=== PATIENT | female | born 1990 | race Caucasian/White ===

== ENCOUNTER 2021-03-09 15:37 | Inpatient (IN) | payer OTHER ==
[2021-03-09] MEDS ORDERED: BUTORPHANOL TARTRATE 1 MG/ML VIAL IVPUSH PRN (17:12)
[2021-03-09] MEDS ORDERED: PROMETHAZINE HCL 25 MG/1 ML VIAL IVPUSH ONE (17:12)
[2021-03-09] MEDS ORDERED: DEXTROSE 5%-LACTATED RINGERS 1,000 ML IV SCH (17:15)
[2021-03-09 17:16] LABS: BASO % 0.3 % (0-2.0); EOS % 0.3 % (0-4.5); HEMATOCRIT 37.3 % (32.4-45.2); HEMOGLOBIN 12.9 GM/dL (10.7-15.3); LYMPH % 23.4 % (8-40); MCH 33.2 pg (25.7-33.7); MCHC 34.7 g/dl (32.0-36.0); MEAN CELL VOLUME 95.7 fl (80-96); MEAN PLT VOLUME 7.9 fl (7.5-11.1); MONO % 7.2 % (3.8-10.2); NEUT % 68.8 % (42.8-82.8); PLATELET COUNT 261 K/MM3 (134-434); RBC 3.89 M/mm3 (3.60-5.2); RDW 13.7 % (11.6-15.6); WHITE BLOOD COUNT 8.3 K/mm3 (4.0-10.0)
[2021-03-09] MEDS ORDERED: AMPICILLIN SODIUM 2 GM VIAL ONE (17:18)
[2021-03-09 17:23] LABS: INR 0.89 (0.83-1.09)
[2021-03-09] MEDS ORDERED: AMPICILLIN - 2 GM in SODIUM CHLORIDE 100 ML IVPB ONE (17:30)
[2021-03-09 17:37] LABS: BLOOD UREA NITROGEN 7.8 mg/dL (7-18); CALCIUM 9.4 mg/dL (8.5-10.1)
[2021-03-09 17:39] VITALS: BMI 33.0
[2021-03-09 17:41] LABS: CREATININE 0.4 mg/dL (0.55-1.3)
[2021-03-09] MEDS ORDERED: ELECTROLYTE-148 SOLN 1,000 ML IV SCH (18:15)
[2021-03-09] MEDS ORDERED: OXYTOCIN 30 UNITS in 0.9% NS 30 UNIT/500 ML INFUS.BAG IVPB SCH ×2 (21:00→21:15)
[2021-03-09] MEDS ORDERED: AMPICILLIN SODIUM 1 GM VIAL ONE ×2 (21:25→21:28)
[2021-03-09] MEDS: AMPICILLIN - 1 GM in SODIUM CHLORIDE 100 ML IVPB SCH (21:30)
[2021-03-09] MEDS ORDERED: OXYTOCIN 30 UNITS in 0.9% NS 30 UNIT/500 ML INFUS.BAG IVPB ONE (22:53)
[2021-03-10] MEDS ORDERED: PROMETHAZINE HCL 25 MG/1 ML VIAL ONE (01:28)
[2021-03-10] MEDS ORDERED: BUTORPHANOL TARTRATE 2 MG/ML VIAL ONE (01:28)
[2021-03-10] MEDS: AMPICILLIN - 1 GM in SODIUM CHLORIDE 100 ML IVPB SCH ×3 (02:00→09:02)
[2021-03-10] MEDS ORDERED: AMPICILLIN SODIUM 1 GM VIAL ONE ×3 (02:03→08:50)
[2021-03-10] MEDS ORDERED: FENTANYL/BUPIVACAINE/NS/PF - PCEA - 50 ML DISP.SYRIN EP ONE (07:16)
[2021-03-10] MEDS ORDERED: PCA PUMP NR ONE (07:16)
[2021-03-10] MEDS ORDERED: NALOXONE HCL 0.4 MG/ML VIAL IVPUSH PRN (08:05)
[2021-03-10] MEDS ORDERED: FENTANYL/BUPIVACAINE/NS/PF - PCEA - 50 ML DISP.SYRIN EP SCH (08:15)
[2021-03-10] MEDS ORDERED: ELECTROLYTE-148 SOLN 1,000 ML IV SCH (08:30)
[2021-03-10] MEDS ORDERED: LIDOCAINE HCL 1% PRESERVATIVE FREE - 30ML VIAL ONE (09:29)
[2021-03-10] MEDS ORDERED: OXYTOCIN 20 UNITS in 0.9% NS 20 UNIT/1,000 ML INFUS.BAG IV ONE (09:29)
[2021-03-10] MEDS: OXYTOCIN 20 UNITS in 0.9% NS 20 UNIT/1,000 ML INFUS.BAG IV SCH ×2 (10:20→18:18)
[2021-03-10 10:53] LABS: CORD HCO3 25.3 mmHg (20-29); CORD PCO2 64.3 mmHg (30-78); CORD pH 7.213 (7.14-7.44)
[2021-03-10 10:55] LABS: CORD BASE EXCESS -4.9 mmol/L (0-2); CORD HCO3 21.8 mmHg (20-29); CORD PCO2 46.2 mmHg (30-78); CORD pH 7.291 (7.14-7.44)
[2021-03-10] MEDS ORDERED: METHYLERGONOVINE MALEATE 0.2 MG/1 ML AMP IM PRN (12:00)
[2021-03-10] MEDS ORDERED: BENZOCAINE 20% 57 GM BOTTLE TP PRN (12:00)
[2021-03-10] MEDS ORDERED: BISACODYL 10 MG SUPP.RECT RC PRN (12:00)
[2021-03-10] MEDS ORDERED: BENZOCAINE 28 GM HEMORRHOIDAL OINTMENT TP PRN (12:00)
[2021-03-10] MEDS ORDERED: WITCH HAZEL 50% (TUCKS) 40 PAD/JAR PAD TP PRN (12:00)
[2021-03-10] MEDS: IBUPROFEN 600 MG TABLET (FP) PO PRN ×2 (16:02→20:44)
[2021-03-10] MEDS: ACETAMINOPHEN 325 MG TABLET (FP) PO PRN ×2 (16:03→20:43)
[2021-03-10] MEDS: SENNOSIDES/DOCUSATE COMBO (SENNA PLUS) TABLET (UD) PO PRN (20:43)
[2021-03-10] MEDS: FERROUS SO4 325 MG TABLET (FP) PO SCH (22:06)
[2021-03-11] MEDS: ACETAMINOPHEN 325 MG TABLET (FP) PO PRN ×3 (00:24→19:53)
[2021-03-11] MEDS: IBUPROFEN 600 MG TABLET (FP) PO PRN ×3 (00:25→19:54)
[2021-03-11 08:22] LABS: BASO % 0.9 % (0-2.0); EOS % 0.5 % (0-4.5); HEMATOCRIT 32.4 % (32.4-45.2); HEMOGLOBIN 11.4 GM/dL (10.7-15.3); LYMPH % 24.3 % (8-40); MCH 33.7 pg (25.7-33.7); MCHC 35.2 g/dl (32.0-36.0); MEAN CELL VOLUME 95.6 fl (80-96); MEAN PLT VOLUME 7.1 fl (7.5-11.1); MONO % 7.4 % (3.8-10.2); NEUT % 66.9 % (42.8-82.8); PLATELET COUNT 230 K/MM3 (134-434); RBC 3.39 M/mm3 (3.60-5.2); WHITE BLOOD COUNT 7.9 K/mm3 (4.0-10.0)
[2021-03-11] MEDS: FERROUS SO4 325 MG TABLET (FP) PO SCH ×2 (09:05→21:37)
[2021-03-11] MEDS: PRENATAL VITAMINS W/ FOLIC ACID TABLET (FP) PO SCH (09:06)
[2021-03-11] MEDS: SENNOSIDES/DOCUSATE COMBO (SENNA PLUS) TABLET (UD) PO PRN (21:40)
[2021-03-12 09:34] VITALS: BP 130/86; PULSE 88; TEMP 98.7
[2021-03-12] MEDS: FERROUS SO4 325 MG TABLET (FP) PO SCH (09:51)
[2021-03-12] MEDS: PRENATAL VITAMINS W/ FOLIC ACID TABLET (FP) PO SCH (09:51)
== END 2021-03-12 11:20 | disposition home or self-care (01) | DRG 807 ==
LOC: JLDR 15:37 → J3W 03-10 12:45
PROVIDERS: ADMIT Obstetrics & Gynecology; ATTEND Obstetrics & Gynecology
PROC: 10E0XZZ Delivery of Products of Conception, External Approach (ICD-10-PCS; principal; 2021-03-10)
PROC: 0HQ9XZZ Repair Perineum Skin, External Approach (ICD-10-PCS; 2021-03-10)
PROC: 0W8NXZZ Division of Female Perineum, External Approach (ICD-10-PCS; 2021-03-10)
DX: O70.0 First degree perineal laceration during delivery (principal); Z3A.39 39 weeks gestation of pregnancy; Z37.0 Single live birth
CPT/HCPCS: 36415; 36600; 59409; 80048; 82803; 85025; 85610; 85730; 86780; 86850; 86870; 86900; 86901; 86902; C9803; U0003; U0005

== ENCOUNTER 2021-03-15 14:11 | Emergency (ER) | payer OTHER ==
[2021-03-15 14:29] VITALS: BMI 31.1
[2021-03-15] MEDS ORDERED: ACETAMINOPHEN 1000 MG/100 ML VIAL (NON FORMULARY) IVPB ONE (14:50)
[2021-03-15] MEDS ORDERED: SODIUM CHLORIDE 1,000 ML IV STA (14:50)
[2021-03-15] MEDS ORDERED: ACETAMINOPHEN INJECTION 100 ML IVPB ONE (15:17)
[2021-03-15 15:24] LABS: BASO % 0.5 % (0-2.0); EOS % 2.2 % (0-4.5); HEMATOCRIT 36.5 % (32.4-45.2); HEMOGLOBIN 12.7 GM/dL (10.7-15.3); LYMPH % 32.7 % (8-40); MCH 33.7 pg (25.7-33.7); MCHC 34.7 g/dl (32.0-36.0); MEAN CELL VOLUME 96.9 fl (80-96); MEAN PLT VOLUME 6.7 fl (7.5-11.1); MONO % 6.7 % (3.8-10.2); NEUT % 57.9 % (42.8-82.8); PLATELET COUNT 333 K/MM3 (134-434); RBC 3.76 M/mm3 (3.60-5.2); RDW 13.8 % (11.6-15.6); WHITE BLOOD COUNT 6.6 K/mm3 (4.0-10.0)
[2021-03-15 15:45] LABS: CALCIUM 8.8 mg/dL (8.5-10.1)
[2021-03-15 15:46] LABS: ALBUMIN 2.8 g/dl (3.4-5.0); BLOOD UREA NITROGEN 12.4 mg/dL (7-18); MAGNESIUM 1.8 mg/dL (1.8-2.4)
[2021-03-15 15:48] LABS: EPI CELLS 19 /uL (0-25.1); HYALINE CASTS 7 /uL (0-3.1); URINE APPEARANCE CLEAR; URINE BACTERIA 9 /uL (0-1359); URINE BILIRUBIN NEGATIVE (NEGATIVE); URINE COLOR YELLOW; URINE GLUCOSE (UA) NEGATIVE (NEGATIVE); URINE KETONE NEGATIVE (NEGATIVE); URINE LEUK ESTERASE 2+ (NEGATIVE); URINE NITRITE NEGATIVE (NEGATIVE); URINE PROTEIN NEGATIVE (NEGATIVE); URINE RBC 192 /uL (0-23.9); URINE UROBILINOGEN 0.2 mg/dL (0.2-1.0); URINE WBC 248 /uL (0-25.8)
[2021-03-15 15:49] LABS: CREATININE 0.5 mg/dL (0.55-1.3)
[2021-03-15 15:51] LABS: BILIRUBIN,TOTAL 0.2 mg/dL (0.2-1); TOT PROT 6.5 g/dl (6.4-8.2)
[2021-03-15 17:18] VITALS: BP 130/82; PULSE 80; TEMP 97.9
== END 2021-03-15 16:55 | disposition home or self-care (01) ==
LOC: JER 14:11
PROC: 3E0333Z Introduction of Anti-inflammatory into Peripheral Vein, Percutaneous Approach (ICD-10-PCS; principal; 2021-03-15)
PROC: 3E0337Z Introduction of Electrolytic and Water Balance Substance into Peripheral Vein, Percutaneous Approach (ICD-10-PCS; 2021-03-15)
DX: N39.0 Urinary tract infection, site not specified (principal)
CPT/HCPCS: 36415; 80053; 81003; 83735; 85025; 87077; 87086; 99284-25; J0131

== ENCOUNTER 2024-02-20 17:37 | Inpatient (IN) | payer OTHER ==
[2024-02-20] MEDS: DEXTROSE 5%-LACTATED RINGERS 1,000 ML IV ONE (18:00)
[2024-02-20 18:42] VITALS: BMI 34.0
[2024-02-20 19:24] LABS: BASO % 0.3 % (0-2.0); EOS % 0.2 % (0-4.5); HEMATOCRIT 35.9 % (32.4-45.2); HEMOGLOBIN 12.7 GM/dL (10.7-15.3); LYMPH % 27.2 % (8-40); MCH 33.2 pg (25.7-33.7); MCHC 35.2 g/dl (32.0-36.0); MEAN CELL VOLUME 94.3 fl (80-96); MEAN PLT VOLUME 7.4 fl (7.5-11.1); MONO % 6.9 % (3.8-10.2); NEUT % 65.4 % (42.8-82.8); PLATELET COUNT 269 10^3/uL (134-434); RBC 3.81 M/mm3 (3.60-5.2); WHITE BLOOD COUNT 7.9 K/mm3 (4.0-10.0)
[2024-02-20 19:32] LABS: INR 0.95 (0.83-1.09)
[2024-02-20 19:35] LABS: ACTIVATED PTT 26.9 SECONDS (25.2-36.5)
[2024-02-20] MEDS ORDERED: FENTANYL/BUPIVACAINE/NS/PF - PCEA - 50 ML DISP.SYRIN EP ONE ×2 (19:39→23:53)
[2024-02-20 19:41] LABS: POTASSIUM 3.3 mmol/L (3.5-5.1)
[2024-02-20 19:43] LABS: CALCIUM 9.1 mg/dL (8.5-10.1)
[2024-02-20 19:44] LABS: ALBUMIN 2.4 g/dl (3.4-5.0); BLOOD UREA NITROGEN 7.4 mg/dL (7-18)
[2024-02-20 19:47] LABS: CREATININE 0.5 mg/dL (0.55-1.3)
[2024-02-20 19:48] LABS: BILIRUBIN,TOTAL 0.4 mg/dL (0.2-1); TOT PROT 6.1 g/dl (6.4-8.2)
[2024-02-20] MEDS ORDERED: NALOXONE HCL 0.4 MG/ML VIAL IVPUSH PRN (19:48)
[2024-02-20] MEDS ORDERED: LIDO 2%/EPI 1:200000 PRESRVFRE (20 ML SDVIAL) ONE (19:49)
[2024-02-20] MEDS ORDERED: BUPIVACAINE HCL/PF 0.25% (2.5MG/ML) 10 ML VIAL ONE (19:49)
[2024-02-20] MEDS: FENTANYL/BUPIVACAINE/NS/PF - PCEA - 50 ML DISP.SYRIN EP SCH (20:07)
[2024-02-20] MEDS: DEXTROSE 5%-LACTATED RINGERS 1,000 ML IV SCH (21:13)
[2024-02-21] MEDS ORDERED: OXYTOCIN 20 UNITS in 0.9% NS 20 UNIT/1,000 ML INFUS.BAG IV ONE (00:07)
[2024-02-21] MEDS ORDERED: BISACODYL 10 MG SUPP.RECT RC PRN (01:57)
[2024-02-21] MEDS ORDERED: WITCH HAZEL 50% (TUCKS) 40 PAD/JAR PAD TP PRN (01:57)
[2024-02-21] MEDS ORDERED: oxyCODONE HCL 5 MG TABLET PO PRN (01:57)
[2024-02-21] MEDS ORDERED: METHYLERGONOVINE MALEATE 0.2 MG/1 ML AMP IM PRN (01:57)
[2024-02-21] MEDS: OXYTOCIN 20 UNITS in 0.9% NS 20 UNIT/1,000 ML INFUS.BAG IV SCH (02:00)
[2024-02-21] MEDS: IBUPROFEN 600 MG TABLET (FP) PO PRN (10:47)
[2024-02-21] MEDS: PRENATAL VITAMINS W/ FOLIC ACID TABLET (FP) PO SCH (10:47)
[2024-02-21] MEDS ORDERED: FENTANYL CITRATE/PF 50 MCG/ML VIAL ONE (11:31)
[2024-02-21] MEDS: BENZOCAINE 20% 57 GM BOTTLE TP PRN (20:55)
[2024-02-22 06:40] LABS: BASO % 0.5 % (0-2.0); EOS % 0.7 % (0-4.5); HEMOGLOBIN 11.6 GM/dL (10.7-15.3); LYMPH % 35.5 % (8-40); MCH 32.4 pg (25.7-33.7); MCHC 34.2 g/dl (32.0-36.0); MEAN CELL VOLUME 94.6 fl (80-96); MEAN PLT VOLUME 7.5 fl (7.5-11.1); MONO % 6.4 % (3.8-10.2); NEUT % 56.9 % (42.8-82.8); PLATELET COUNT 242 10^3/uL (134-434); RDW 13.4 % (11.6-15.6); WHITE BLOOD COUNT 8.3 K/mm3 (4.0-10.0)
[2024-02-22] MEDS ORDERED: SENNOSIDES/DOCUSATE COMBO (SENNA PLUS) TABLET (UD) PO PRN (22:00)
[2024-02-22 22:16] VITALS: PULSE 94
[2024-02-23] MEDS: BENZOCAINE 28 GM HEMORRHOIDAL OINTMENT TP PRN (09:42)
[2024-02-23 11:43] VITALS: BP 113/55; RESP 18; TEMP 97.3
[2024-02-23] MEDS: ACETAMINOPHEN 325 MG TABLET (FP) PO PRN (12:36)
== END 2024-02-23 14:25 | disposition home or self-care (01) | DRG 807 ==
LOC: JDEL 17:37 → JLDR 18:25 → J3W 02-21 03:53
PROVIDERS: ADMIT Obstetrics & Gynecology; ATTEND Obstetrics & Gynecology
PROC: 10E0XZZ Delivery of Products of Conception, External Approach (ICD-10-PCS; principal; 2024-02-21)
PROC: 0KQM0ZZ Repair Perineum Muscle, Open Approach (ICD-10-PCS; 2024-02-21)
DX: O36.63X0 Maternal care for excessive fetal growth, third trimester, not applicable or unspecified (principal); Z37.0 Single live birth; Z3A.37 37 weeks gestation of pregnancy; O70.0 First degree perineal laceration during delivery; O99.02 Anemia complicating childbirth; D64.9 Anemia, unspecified
CPT/HCPCS: 36415; 59025; 80053; 85025; 85610; 85730; 86780; 86850; 86870; 86880; 86900; 86901; 86902